=== PATIENT | female | born 1990 | race Two or more races ===

== ENCOUNTER 2024-05-08 14:23 | Outpatient (CLI) | payer OTHER | END 2024-05-08 14:27 | disposition home or self-care (01) | LOC: PRENATAL 14:23 | PROVIDERS: ATTEND Obstetrics & Gynecology Maternal & Fetal Medicine | DX: O36.80X0 Pregnancy with inconclusive fetal viability, not applicable or unspecified (principal); Z36.82 Encounter for antenatal screening for nuchal translucency; Z3A.12 12 weeks gestation of pregnancy ==

== ENCOUNTER 2024-07-03 12:41 | Outpatient (CLI) | payer OTHER | END 2024-07-03 12:42 | disposition home or self-care (01) | LOC: PRENATAL 12:41 | PROVIDERS: ATTEND Obstetrics & Gynecology Maternal & Fetal Medicine | DX: O35.3XX0 Maternal care for (suspected) damage to fetus from viral disease in mother, not applicable or unspecified (principal); O44.00 Complete placenta previa NOS or without hemorrhage, unspecified trimester; Z3A.20 20 weeks gestation of pregnancy ==

== ENCOUNTER 2024-09-25 13:33 | Outpatient (CLI) | payer OTHER | END 2024-09-25 13:34 | disposition home or self-care (01) | LOC: PRENATAL 13:33 | PROVIDERS: ATTEND Obstetrics & Gynecology Maternal & Fetal Medicine | DX: O26.849 Uterine size-date discrepancy, unspecified trimester (principal); O36.8199 Decreased fetal movements, unspecified trimester, other fetus; Z3A.32 32 weeks gestation of pregnancy ==

== ENCOUNTER 2024-10-07 00:54 | Outpatient (CLI) | payer OTHER ==
[~2024-10-07] VITALS: Ht 162.6 cm; Wt 74.8 kg
[2024-10-07 00:02] VITALS: BP 104/69
[2024-10-07] MEDS ORDERED: RINGERS SOLUTION,LACTATED 1,000 ML IV SCH (01:00)
[2024-10-07] MEDS ORDERED: ACETAMINOPHEN 500 MG GEL..CAP PO PRN (01:00)
[2024-10-07] MEDS ORDERED: PRENATAL TABLE1 EAC4 PO (01:02)
[2024-10-07 01:25] LABS: HEMATOCRIT 33.3 % (36.0-45.00); MEAN CELL VOLUME 95.7 fL (80.00-100.00); MEAN CORPUSCULAR HEMOGLOBIN 31.7 pg (27.00-32.0); MEAN CORPUSCULAR HGB CONC 33.1 g/dl (32.0-36.0); PLATELET COUNT 280 K/uL (150-450); RED BLOOD COUNT 3.48 M/uL (4.00-6.00); RED CELL DISTRIBUTION WIDTH 12.9 % (11.5-14.5)
[2024-10-07 01:38] LABS: PH,URINE 6.5 (5.0-8.0); URINE APPEARANCE Clear; URINE BILIRRUBIN Negative (NEGATIVE); URINE BLOOD Large; URINE COLOR Yellow; URINE GLUCOSE Negative (NEGATIVE); URINE KETONE Trace (NEGATIVE); URINE LEUKOCYTE Negative; URINE NITRATE Negative; URINE PROTEIN 30 (NEGATIVE)
[2024-10-07 01:41] LABS: URINE BACTERIA 921.5 uL (0.0-1933); URINE EPITHELIAL CELLS 55.4 uL (0.0-38.8); URINE RBC 1010.2 uL (0.0-20.8); URINE WBC 39.5 uL (0.0-23.2)
[2024-10-07 02:06] LABS: URINE CAST 0.58 uL (0.0-1.40); URINE CRYSTALS MODERATE /HPF; URINE MUCUS MODERATE
[2024-10-07] MEDS ORDERED: CEFAZOLIN SODIUM 1,000 MG VIAL IV ONE (03:00)
[2024-10-07 03:59] VITALS: BP 93/60
[2024-10-07 07:11] VITALS: BP 90/56
[2024-10-07 11:28] VITALS: BP 89/59; BP 99/59
[2024-10-07 15:50] VITALS: BP 96/60
[2024-10-07 17:25] VITALS: BP 96/60
== END 2024-10-07 16:32 | disposition home or self-care (01) ==
LOC: OBS/DEL 00:54
PROVIDERS: ATTEND Student in an Organized Health Care Education/Training Program
DX: O26.893 Other specified pregnancy related conditions, third trimester (principal); Z3A.33 33 weeks gestation of pregnancy

== ENCOUNTER 2024-11-19 14:45 | Inpatient (IN) | payer OTHER ==
[~2024-11-19] VITALS: Ht 162.6 cm; Wt 78.9 kg
[~2024-11-19 14:45] MED LIST: PRENATAL TABLE1 EAC4 PO
[2024-11-19 16:32] LABS: PH,URINE 6.5 (5.0-8.0); URINE APPEARANCE Clear; URINE BILIRRUBIN Negative (NEGATIVE); URINE BLOOD Negative; URINE COLOR Yellow; URINE GLUCOSE Negative (NEGATIVE); URINE KETONE Negative (NEGATIVE); URINE LEUKOCYTE Negative; URINE NITRATE Negative; URINE PROTEIN Negative (NEGATIVE); URINE UROBILINOGEN 0.2 E.U./dl
[2024-11-19 16:36] LABS: URINE BACTERIA 1013.4 uL (0.0-1933); URINE EPITHELIAL CELLS 84.3 uL (0.0-38.8); URINE RBC 2.7 uL (0.0-20.8); URINE WBC 13.4 uL (0.0-23.2)
[2024-11-19 16:48] LABS: URINE CAST 0.14 uL (0.0-1.40)
[2024-11-19 16:50] LABS: HEMATOCRIT 39.7 % (36.0-45.00); HEMOGLOBIN 12.9 g/dL (12.0-15.00); MEAN CELL VOLUME 93.4 fL (80.00-100.00); MEAN CORPUSCULAR HEMOGLOBIN 30.3 pg (27.00-32.0); MEAN CORPUSCULAR HGB CONC 32.4 g/dl (32.0-36.0); PLATELET COUNT 302 K/uL (150-450); RED BLOOD COUNT 4.25 M/uL (4.00-6.00); RED CELL DISTRIBUTION WIDTH 14.8 % (11.5-14.5)
[2024-11-19 17:00] LABS: INR 0.94; PARTIAL THROMBOPLASTIN TIME 24.8 SECONDS (22.0-34.0); PROTHROMBIN TIME 10.3 SECONDS (9.0-11.5)
[2024-11-19 17:05] LABS: BILIRUBIN TOTAL 0.29 mg/dL (0.3-1.2); CALCIUM 9.3 mg/dL (8.5-10.1); CREATININE SERUM 0.54 mg/dL (0.55-1.02); GFR 130.83; POTASSIUM 4.31 mEq/L (3.5-5.1)
[2024-11-24] MEDS ORDERED: RINGERS SOLUTION,LACTATED 1,000 ML IV SCH (19:30)
[2024-11-24] MEDS ORDERED: AMPICILLIN SODIUM 2,000 MG VIAL IV ONE (19:30)
[2024-11-24 19:38] VITALS: BP 120/69
[2024-11-24] MEDS ORDERED: MISOPROSTOL 25 MCG/4 ML GEL.W.APPL ONE (20:28)
[2024-11-24] MEDS ORDERED: MISOPROSTOL 25 MCG/4 ML GEL.W.APPL VAG ONE (20:30)
[2024-11-24 23:17] VITALS: BP 113/70
[2024-11-25] MEDS ORDERED: AMPICILLIN SODIUM 1,000 MG VIAL IV SCH
[2024-11-25 04:05] VITALS: BP 102/61
[2024-11-25] MEDS ORDERED: MISOPROSTOL 25 MCG/4 ML GEL.W.APPL ONE (06:39)
[2024-11-25] MEDS ORDERED: MISOPROSTOL 25 MCG/4 ML GEL.W.APPL VAG ONE (07:00)
[2024-11-25 08:02] VITALS: BP 102/63
[2024-11-25] MEDS ORDERED: OXYTOCIN 500 ML IV SCH (10:45)
[2024-11-25] MEDS ORDERED: OXYTOCIN 20 UNITS/500ML RL PIGGYBAG IV ONE (10:49)
[2024-11-25 11:56] VITALS: BP 113/73
[2024-11-25 15:35] VITALS: BP 126/72
[2024-11-25] MEDS ORDERED: CEFAZOLIN SODIUM 1,000 MG VIAL IV SCH (17:15)
[2024-11-25] MEDS ORDERED: CHLORHEXIDINE GLUCONATE 120 ML BOTTLE TOP ONE (17:27)
[2024-11-25] MEDS ORDERED: OXYTOCIN 10 UNITS/ML VIAL ONE (17:27)
[2024-11-25] MEDS ORDERED: ERYTHROMYCIN BASE OPHT 1GM EACH TUBE OP ONE (17:28)
[2024-11-25] MEDS ORDERED: MORPHINE SULFATE 4 MG/ML CARTRIDGE IV ONE (17:30)
[2024-11-25] MEDS ORDERED: CEFAZOLIN SODIUM 1,000 MG VIAL ONE (20:31)
[2024-11-25 20:39] VITALS: BP 114/69
[2024-11-25] MEDS ORDERED: KETOROLAC TROMETHAMINE 30 MG VIAL IV PRN (20:45)
[2024-11-25] MEDS ORDERED: OXYTOCIN 1,000 ML IV SCH (20:45)
[2024-11-25] MEDS ORDERED: MEPERIDINE HCL/PF 25 MG/ML VIAL IV PRN (21:00)
[2024-11-25] MEDS ORDERED: PROMETHAZINE HCL 25 MG/ML AMPUL IV PRN (21:00)
[2024-11-26] MEDS ORDERED: ONDANSETRON HCL 2 MG/ML VIAL ONE (00:18)
[2024-11-26] MEDS ORDERED: MORPHINE SULFATE 4 MG/ML VIAL IV ONE ×2 (00:25)
[2024-11-26] MEDS ORDERED: KETOROLAC TROMETHAMINE 30 MG VIAL IV ONE (02:20)
[2024-11-26 02:42] LABS: HEMATOCRIT 36.7 % (36.0-45.00); HEMOGLOBIN 12.1 g/dL (12.0-15.00); MEAN CELL VOLUME 92.6 fL (80.00-100.00); MEAN CORPUSCULAR HEMOGLOBIN 30.6 pg (27.00-32.0); PLATELET COUNT 246 K/uL (150-450); RED BLOOD COUNT 3.96 M/uL (4.00-6.00)
[2024-11-26 02:59] VITALS: BP 114/75
[2024-11-26] MEDS ORDERED: IBUprofen 800 MG TABLET PO PRN (07:00)
[2024-11-26] MEDS ORDERED: OxyCODONE HCL/APAP UD (PERCOCET) PO PRN (07:00)
[2024-11-26 08:08] VITALS: BP 112/68
[2024-11-26] MEDS ORDERED: SIMETHICONE 125 MG CAPSULE PO SCH (09:00)
[2024-11-26] MEDS ORDERED: DOCUSATE SODIUM 100MG CAP PO SCH (09:00)
[2024-11-26 15:52] VITALS: BP 104/69
[2024-11-27 01:58] VITALS: BP 109/74
[2024-11-27 08:00] VITALS: BP 90/60
[2024-11-27 15:32] VITALS: BP 101/69
[2024-11-28] VITALS: BP 98/64
[2024-11-28 07:38] VITALS: BP 95/61
[2024-11-28] MEDS ORDERED: COLACE100 MG PO (12:23)
[2024-11-28] MEDS ORDERED: IBU800 MG PO (12:23)
[2024-11-28] MEDS ORDERED: SIMETHICONE125 M1 PO (12:24)
== END 2024-11-28 02:20 | disposition home or self-care (01) | DRG 788 ==
LOC: OB/GYN 11-20 14:45 → LDR 11-24 19:11 → O/R 11-25 21:31 → OB/GYN 11-25 23:14
PROVIDERS: Student in an Organized Health Care Education/Training Program; ADMIT Obstetrics & Gynecology; ATTEND Obstetrics & Gynecology
PROC: 3E0P7VZ Introduction of Hormone into Female Reproductive, Via Natural or Artificial Opening (ICD-10-PCS; 2024-11-24)
PROC: 4A1HXCZ Monitoring of Products of Conception, Cardiac Rate, External Approach (ICD-10-PCS; 2024-11-24)
PROC: 3E033VJ Introduction of Other Hormone into Peripheral Vein, Percutaneous Approach (ICD-10-PCS; 2024-11-25)
PROC: 10D00Z1 Extraction of Products of Conception, Low, Open Approach (ICD-10-PCS; principal; 2024-11-25 20:00)
DX: O82 Encounter for cesarean delivery without indication (principal); O61.0 Failed medical induction of labor; Z3A.40 40 weeks gestation of pregnancy; Z37.0 Single live birth